=== PATIENT | female | born 1985 | race Caucasian/White ===

== ENCOUNTER 2017-05-07 14:11 | Day surgery (SDC) | payer OTHER ==
[2017-05-07] VITALS (25 sets, daily range): BP systolic 125–183; BP diastolic 67–100; PULSE 58–82; RESP 16–21; Ht 152.4 cm; Wt 103.0 kg
[~2017-05-07] VITALS: Ht 152.4 cm; Wt 103.0 kg
[~2017-05-07 14:11] MED LIST: ACET325T33 PO; ALBU8.5H5 INH; AZIT250T94 PO; CIPR500T4 PO; CYCL-319 PO; DEXAMETHASONE 4 MG/ML 1 ML INJ IV ONE; HYDR-3498 PO; NAPR-260 PO; SYN112 PO
[2017-05-07] MEDS ORDERED: FENTAnyl 50 MCG/ML VIAL ONE ×2 (17:56→18:14)
[2017-05-07] MEDS ORDERED: MIDAZOLAM 1 MG/ML 2 ML INJ ONE (17:56)
--- NOTE | 2017-05-07 18:07 | HPN ---
Date/Time of Note Date/Time of Note DATE: 05/07/17 TIME: 18:07 Interval H&P Admission Note Pt. seen H&P reviewed: No system changes CISCO GARZA MD May 07, 2017 18:07
[2017-05-07] MEDS ORDERED: ONDANSETRON 4 MG INJ ONE (18:57)
[2017-05-07] MEDS ORDERED: PROPOFOL 20 ML ONE (18:57)
[2017-05-07] MEDS ORDERED: LIDOCAINE 2% (SDV) 5 ML INJ ONE (18:57)
[2017-05-07] MEDS ORDERED: DIPHENHYDRAMINE 50 MG INJ IV PRN (19:00)
[2017-05-07] MEDS ORDERED: MEPERIDINE 25 MG INJ IV PRN (19:00)
[2017-05-07] MEDS ORDERED: FENTAnyl 50 MCG/ML VIAL IV PRN (19:00)
[2017-05-07] MEDS ORDERED: ONDANSETRON 4 MG INJ IV PRN (19:00)
[2017-05-07] MEDS ORDERED: HYDROCODONE/APAP (5/325) TAB PO PRN (19:00)
--- NOTE | 2017-05-07 19:07 | OPR ---
Date/Time of Note Date/Time of Note DATE: 05/07/17 TIME: 19:02 Operative Report Procedure Date: May 07, 2017 Preoperative Diagnosis Chronic and recurrent tonsillitis, adenoid and tonsillar hypertrophy, serous otitis media Postoperative Diagnosis Same Operation Performed Tonsillectomy, adenoidectomy, bilateral tympanostomy. Surgeon: CISCO GARZA MD Anesthesia: general Estimated Blood Loss: 10 - 50 ml's Specimens Tonsils Complications: None Pt Condition Post Procedure: stable Disposition: PACU Indications Chronic and recurrent tonsillitis, RADHA, OME Operative\Procedure Findings Sever inflammatory changes, RADHA, symmetric. Mild middle ear mucosal edema. Procedure Description The patient was identified in the holding area with family. We had a discussion with the family to confirm understanding of the risks, benefits, alternatives, and postoperative care associated with the operation. Informed consent was obtained. The patient was taken to the operating room and laid supine on the operating room table. General endotracheal anesthesia was achieved without difficulty. The eyes and face were taped and draped for protection. A Druvar mouth gag was used to extend the mouth open. Tonsils were evaluated by inspection and palpation. The palate was evaluated and found to be intact. The left tonsil was addressed first with the Coblation wand. Intracapsular resection was performed in superior to inferior fashion until the superior pharyngeal constrictor muscle was reached. There was extensive bleeding throughout. Nothing arterial and all easily controlled with suction bovie. The muscle was not violated. The contralateral tonsil was resected in similar fashion. Next, a laryngeal mirror was used to visualize the nasopharynx. Suction bovie cautery was used to liquify all adenoid tissue in a superficial to deep fashion. A small amount was left over Passavant's ridge to prevent postoperative velopharyngeal insufficiency. The oral cavity and pharynx were irrigated with saline. Inspection revealed no bleeding or oozing. All instruments were removed. Microscopic evaluation of the left ear was performed. The TM was visualized after cerumenectomy and a myringotomy knife was used to make a myringotomy in the anteroinferior quadrant. A Sheehey ventilation tube was placed without difficulty. The contralateral ear was addressed in similar fashion. Complications: None Anesthesia was asked to awaken the patient. The patient was extubated and taken to the PACU in stable condition. CISCO GARZA MD May 07, 2017 19:07
== END 2017-05-07 21:07 | disposition home or self-care (01) ==
LOC: SDS 14:11
PROVIDERS: ATTEND Otolaryngology
DX: J03.91 Acute recurrent tonsillitis, unspecified (principal); J35.01 Chronic tonsillitis; E03.9 Hypothyroidism, unspecified; E66.01 Morbid (severe) obesity due to excess calories; Z68.41 Body mass index [BMI] 40.0-44.9, adult
CPT/HCPCS: 42821; 88304; J2175; J2250; J2405; J3010; L8699; Z7512; Z7610

== ENCOUNTER 2017-05-09 11:31 | Emergency (ER) | payer OTHER ==
[~2017-05-09] VITALS: Ht 157.5 cm; Wt 102.0 kg
[~2017-05-09 11:31] MED LIST changes: -ACET325T33 PO; -ALBU8.5H5 INH; -AZIT250T94 PO; -CIPR500T4 PO; -CYCL-319 PO; -DEXAMETHASONE 4 MG/ML 1 ML INJ IV ONE; -HYDR-3498 PO; -NAPR-260 PO
[2017-05-09 11:34] VITALS: Ht 157.5 cm; Wt 102.0 kg
[2017-05-09] MEDS ORDERED: DEXAMETHASONE 10 MG/ML 1 ML INJ IM ONE (12:00)
[2017-05-09] MEDS ORDERED: ONDA8TAB14 PO (12:29)
[2017-05-09] MEDS ORDERED: HYDR-906 PO (12:29)
--- NOTE | 2017-05-09 12:29 | ERD ---
ER Documentation Chief Complaint Date/Time DATE: 05/09/17 TIME: 12:20 Chief Complaint Complains of a sorethroat post-op tonsillectomy x 3days HPI Patient is a 31-year-old female who presents to the emergency department with throat pain s/p tonsillectomy, adenoidectomy, ear tube placement surgery which occurred 3 days ago. Patient states that she has been taking Tylenol 3. Patient states that her symptoms are relieved however than her symptoms do return after the medication wears off. Patient does report difficulty with swallowing secretions. Patient denies any trismus or drooling. Patient denies any fevers, chills or vomiting. Patient does report some nausea. Patient denies taking any antibiotics at this time. Patient has not seen her ENT specialist for follow-up appointment. Patient does report decreased appetite secondary to pain. ROS All systems reviewed and are negative except as per history of present illness. Medications Home Meds Active Scripts Ondansetron (Ondansetron Odt) 8 Mg Tab.rapdis, 8 MG PO Q6H Y for NAUSEA AND/OR VOMITING, #10 TAB Prov:SHAKA LANDA PA-C 05/09/17 Hydrocodone/Acetaminophen (Milton 5-325 Tablet) 1 Each Tablet, 1 TAB PO Q6H Y for PAIN, #7 TAB Prov:SHAKA LANDA PA-C 05/09/17 Reported Medications Levothyroxine Sodium* (Levothyroxine Sodium*) 112 Mcg Tablet, 112 MCG PO AC BREAKFAST, TAB 05/26/14 Discontinued Scripts Acetaminophen* (Tylenol*) 325 Mg Tablet, 2 TAB PO Q8 Y for PAIN AND OR ELEVATED TEMP, #20 TAB Prov:CONNIE DELACRUZ PA-C 12/05/15 Ciprofloxacin Hcl* (Ciprofloxacin Hcl*) 500 Mg Tablet, 500 MG PO BID for 7 Days , TAB Prov:CONNIE DELACRUZ PA-C 12/05/15 Albuterol Sulfate* (Albuterol Sulfate* HFA) 8.5 Gm Hfa.aer.ad, 1-2 PUFF INH Q4 Y for SHORTNESS OF BREATH, #1 EA Prov:KANCHAN MICHAEL PA-C 08/26/15 Azithromycin* (Zithromax*) 250 Mg Tablet, 250 MG PO .CARMELITACK DIRECTED, #6 TAB TAKE 500 MG (2 TABS) THE FIRST DAY THEN 250 MG (1 TAB) DAYS 2-5 Prov:KANCHAN MICHAEL PA-C 08/26/15 Hydrocodone Bit-Acetaminophen* (Milton*) 5-325 Mg Tab, 1 TAB PO Q6 Y for PAIN, # 10 TAB Prov:EUGENIA MONTE PA-C 07/09/15 Cyclobenzaprine Hcl* (Cyclobenzaprine Hcl*) 10 Mg Tablet, 10 MG PO TID, #15 TAB Prov:CONNIE DELACRUZ PA-C 06/19/15 Naproxen* (Naprosyn*) 500 Mg Tablet, 500 MG PO BID, #30 TAB Prov:CONNIE DELACRUZ PA-C 06/19/15 Hydrocodone Bit-Acetaminophen* (Milton*) 5-325 Mg Tab, 1 TAB PO Q6 Y for PAIN, # 10 TAB Prov:CONNIE DELACRUZ PA-C 06/19/15 Allergies Allergies: Coded Allergies: Penicillins (Verified Allergy, Unknown, 05/07/17) aspirin (Verified Allergy, Unknown, 05/07/17) PMhx/Soc History of Surgery: Yes (C/ S X1,tonsilectomy) Anesthesia Reaction: No Hx Neurological Disorder: No Hx Respiratory Disorders: No Hx Cardiac Disorders: No Hx Psychiatric Problems: No Hx Miscellaneous Medical Probl: No Hx Alcohol Use: Yes (OCCASIONAL) Hx Substance Use: No Hx Tobacco Use: No FmHx Family History: No diabetes Physical Exam Vitals Vital Signs Date Time Temp Pulse Resp B/P Pulse Ox O2 Delivery O2 Flow Rate FiO2 05/09/17 12:34 89 19 130/86 96 Room Air 05/09/17 11:34 99.5 105 20 149/87 98 Physical Exam GENERAL: Well-developed, well-nourished female. Appears in no acute distress. HEAD: Normocephalic, atraumatic. No deformities or ecchymosis. EYE: Pupils equal, round, and reactive to light. EOMs intact. No conjunctival erythema. No eye discharge. ENT: External ear without any masses or tenderness. Bilateral ear tube placement noted in tympanic membrane. Nasal mucosa pink with no discharge. Oropharynx is whitish mix in color consistent with post tonsillectomy. No active bleeding. Swelling noted to the uvula. Airway is open. Increased saliva noted in the posterior oropharynx. NECK: Supple. No meningismus. Normal ROM of the neck. LUNG: Clear to auscultation bilaterally. No rhonchi, wheezing, rales or coarse breath sounds. HEART: Regular rate and rhythm. No murmurs, rubs or gallops. BACK: No midline tenderness. EXTREMITIES: Equal pulses bilaterally. No peripheral clubbing, cyanosis or edema. No unilateral leg swelling. NEUROLOGIC: Alert and oriented to person, place and time. Moving all four extremities. 5/5 strength in all extremities. Normal speech. Steady gait. SKIN: Normal color. Warm and dry. No rashes or lesions. Results 24 hrs Current Medications Medications (Trade) Dose Ordered Sig/Tressa Route PRN Reason Start Time Stop Time Status Last Admin Dose Admin Dexamethasone (Decadron) 10 mg ONCE ONCE IM 05/09/17 12:00 05/09/17 12:01 DC 05/09/17 12:01 Procedures/MDM ED COURSE: The patient was stable throughout ED course. I kept the patient and/or family informed of laboratory and diagnostic imaging results throughout the ED course. MEDICATIONS GIVEN: Decadron IM Patient tolerated medication well with no adverse reactions. Patient reported improvement in pain. MEDICAL DECISION MAKING: Patient is a 31-year-old female who presents to the ED with throat pain after a tonsillectomy, adenoidectomy. Patient's surgery was 3 days ago. Patient does report increased saliva production however she is not drooling does not have trismus at this time.. Vital signs were reviewed. Patient was afebrile. Patient was not hypoxic. Physical exam findings were consistent with post tonsillectomy inflammatory changes. Given these findings, the patient's presentation is most consistent with throat pain after tonsillectomy and adenoidectomy. I have a much lower clinical suspicion for epiglottitis, peritonsillar abscess, retropharyngeal abscess, post op infection, dental abscess, meningitis or sepsis. PRESCRIPTIONS: Martha Reynolds DISCHARGE: I have instructed the patient to follow-up with his/her primary care physician in 1-2 days. Patient was advised to contact her ENT specialist Dr. Parker for a follow up appointment. I have instructed the patient to promptly return to the ER for any new or worsening symptoms including increased pain, fever, nausea, vomiting, weakness or LOC. The patient and/or family expressed understanding of and agreement with this plan. All questions were answered. Home care instructions were provided. Departure Diagnosis: Primary Impression: Post-tonsillectomy pain Condition: Stable Patient Instructions: Tonsillectomy, Post Op Bleeding Referrals: CISCO PARKER MD [facility] YOU HAVE RECEIVED A MEDICAL SCREENING EXAM AND THE RESULTS INDICATE THAT YOU DO NOT HAVE A CONDITION THAT REQUIRES URGENT TREATMENT IN THE EMERGENCY DEPARTMENT. FURTHER EVALUATION AND TREATMENT OF YOUR CONDITION CAN WAIT UNTIL YOU ARE SEEN IN YOUR DOCTORS OFFICE WITHIN THE NEXT 1-2 DAYS. IT IS YOUR RESPONSIBILITY TO MAKE AN APPOINTMENT FOR FOLOW-UP CARE. IF YOU HAVE A PRIMARY DOCTOR --you should call your primary doctor and schedule an appointment IF YOU DO NOT HAVE A PRIMARY DOCTOR YOU CAN CALL OUR PHYSICIAN REFERRAL HOTLINE AT IF YOU CAN NOT AFFORD TO SEE A PHYSICIAN YOU CAN CHOSE FROM THE FOLLOWING [facility] [address] [facility] [address] [facility] [address] [facility] [address] [facility] [address] [facility]. [facility]. [address] [facility]. [facility] YOU HAVE RECEIVED A MEDICAL SCREENING EXAM AND THE RESULTS INDICATE THAT YOU DO NOT HAVE A CONDITION THAT REQUIRES URGENT TREATMENT IN THE EMERGENCY DEPARTMENT. FURTHER EVALUATION AND TREATMENT OF YOUR CONDITION CAN WAIT UNTIL YOU ARE SEEN IN YOUR DOCTORS OFFICE WITHIN THE NEXT 1-2 DAYS. IT IS YOUR RESPONSIBILITY TO MAKE AN APPOINTMENT FOR FOLOW-UP CARE. IF YOU HAVE A PRIMARY DOCTOR --you should call your primary doctor and schedule and appointment IF YOU DO NOT HAVE A PRIMARY DOCTOR YOU CAN CALL OUR PHYSICIAN REFERRAL HOTLINE AT . IF YOU CAN NOT AFFORD TO SEE A PHYSICIAN YOU CAN CHOSE FROM THE FOLLOWING COUNTS INCLUDE 234 BEDS AT THE [facility] INSTITUTIONS: [facility] [address] [place] [address] [facility] [address] [place] [address] [facility] + [facility] [address] [place] [address] Additional Instructions: Call your ENT specialist Dr. Parker for an appointment in the next 1-2 days. Take Milton or Tylenol 3, DO NOT take both at the same time. Call your primary care doctor TOMORROW for an appointment during the next 1-2 days.See the doctor sooner or return here if your condition worsens before your appointment time. SHAKA LANDA PA-C May 09, 2017 12:29
[2017-05-09 12:34] VITALS: BP 130/86; PULSE 89; RESP 19
== END 2017-05-09 12:37 | disposition home or self-care (01) ==
LOC: FTE 11:31
DX: G89.18 Other acute postprocedural pain (principal); R07.0 Pain in throat
CPT/HCPCS: 96372; J1100